=== PATIENT | male | born 1965 | race African-American/Black ===

== ENCOUNTER 2020-08-29 12:55 | Emergency (ER) | payer OTHER ==
[~2020-08-29] VITALS: Ht 193 cm; Wt 98.0 kg
[2020-08-29] MEDS ORDERED: NAPROXEN 500 MG TABLET PO STA (16:37)
[2020-08-29 16:38] VITALS: BP 138/88
[2020-08-29] MEDS ORDERED: HYDROcodone/APAP 5/325MG 1 TAB TABLET PO ONE (16:45)
[2020-08-29] MEDS ORDERED: CYCLOBENZAPRINE 10 MG TABLET. PO ONE (16:45)
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
[2020-08-29] MEDS ORDERED: CYCL10TA2 PO (17:26)
[2020-08-29] MEDS ORDERED: DICL50TA2 PO (17:26)
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
== END 2020-08-29 17:46 | disposition home or self-care (01) ==
LOC: ER 12:55
DX: M54.5 Low back pain (principal); M79.604 Pain in right leg; G89.11 Acute pain due to trauma; F17.200 Nicotine dependence, unspecified, uncomplicated; V46.4XXA Person boarding or alighting a car injured in collision with other nonmotor vehicle, initial encounter; Y92.488 Other paved roadways as the place of occurrence of the external cause; Y93.89 Activity, other specified; Y99.8 Other external cause status
CPT/HCPCS: 72100; 99283; 99284

== ENCOUNTER → 2020-11-15 | Outpatient (CLI) | payer OTHER ==
[~2020-11-15] MED LIST: CYCL10TA2 PO; DICL50TA2 PO
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
== END ==
LOC: RAD 09:02
PROVIDERS: ATTEND Family Medicine
DX: M47.817 Spondylosis without myelopathy or radiculopathy, lumbosacral region (principal); M25.78 Osteophyte, vertebrae; S32.009A Unspecified fracture of unspecified lumbar vertebra, initial encounter for closed fracture; X58.XXXA Exposure to other specified factors, initial encounter; Y93.89 Activity, other specified; Y92.89 Other specified places as the place of occurrence of the external cause; Y99.8 Other external cause status
CPT/HCPCS: 72100; 73560

== ENCOUNTER → 2021-08-10 | Emergency (ER) | payer OTHER ==
[~2021-08-10] VITALS: Ht 193 cm; Wt 92.3 kg
[~2021-08-10] MED LIST changes: +CYCL10TA19 PO; -CYCL10TA2 PO; +KETOROLAC 60 MG/2 ML VIAL. IM ONE; +ORPH100T PO; +ORPHENADRINE CITRATE 60 MG/2 ML VIAL. IM ONE
[2021-08-10 11:46] VITALS: BP 178/105
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
== END ==
LOC: ER 11:33
DX: S40.011A Contusion of right shoulder, initial encounter (principal); I10 Essential (primary) hypertension; M19.011 Primary osteoarthritis, right shoulder; F17.200 Nicotine dependence, unspecified, uncomplicated; V49.59XA Passenger injured in collision with other motor vehicles in traffic accident, initial encounter; Y93.89 Activity, other specified; Y92.488 Other paved roadways as the place of occurrence of the external cause; Y99.8 Other external cause status
CPT/HCPCS: 73030; 96372; 99284; J1885; J2360